=== PATIENT | female | born 1985 | race Caucasian/White ===

== ENCOUNTER 2017-01-13 11:37 | Emergency (ER) | payer OTHER ==
[~2017-01-13] VITALS: Ht 162.6 cm; Wt 62.1 kg
[2017-01-13 12:47] LABS: HEMATOCRIT 40.9 % (34.6-47.8); HEMOGLOBIN 13.8 g/dL (11.7-16.4); WHITE BLOOD COUNT 9.3 x10^3/uL (3.4-10)
[2017-01-13 12:58] LABS: ASPARTATE AMINO TRANSFERASE 19 U/L (15-37); BLOOD UREA NITROGEN 7 mg/dL (7-18)
[2017-01-13 13:03] LABS: IS PT STATUS REG ER OR PRE ER? YES
[2017-01-13 14:40] VITALS: BP 127/71
== END 2017-01-13 14:51 | disposition home or self-care (01) ==
LOC: ED 14:40
DX: O26.891 Other specified pregnancy related conditions, first trimester (principal); R00.0 Tachycardia, unspecified; R06.02 Shortness of breath; Z3A.09 9 weeks gestation of pregnancy
CPT/HCPCS: 36415; 71020; 80053; 84439; 84443; 84484; 85025; 93005; 99285

== ENCOUNTER → 2017-01-13 | Outpatient (CLI) | payer OTHER | END | disposition home or self-care (01) | LOC: CARD 15:14 | PROVIDERS: ATTEND Emergency Medicine | DX: I49.3 Ventricular premature depolarization (principal) | CPT/HCPCS: 93225; 93226 ==

== ENCOUNTER → 2017-01-13 | Outpatient (CLI) | payer OTHER | LOC: CARD 15:09 | PROVIDERS: ATTEND Emergency Medicine | DX: Z02.9 Encounter for administrative examinations, unspecified (principal) ==

== ENCOUNTER → 2017-02-12 | Outpatient (CLI) | payer OTHER | END | disposition home or self-care (01) | LOC: CFH 15:05 | PROVIDERS: ATTEND Internal Medicine Cardiovascular Disease | DX: R00.2 Palpitations (principal); R00.0 Tachycardia, unspecified | CPT/HCPCS: 93306 ==

== ENCOUNTER 2017-07-28 17:06 | Outpatient (CLI) | payer OTHER ==
[~2017-07-28] VITALS: Ht 162.6 cm; Wt 79.0 kg
[2017-07-28 17:17] VITALS: BP 122/84
== END 2017-07-28 17:50 | disposition home or self-care (01) ==
LOC: LDOP 17:06
PROVIDERS: ATTEND Obstetrics & Gynecology
DX: Z36.89 Encounter for other specified antenatal screening (principal); Z3A.36 36 weeks gestation of pregnancy
CPT/HCPCS: 59025; 99211; G0463

== ENCOUNTER 2017-08-05 10:35 | Outpatient (CLI) | payer OTHER ==
[~2017-08-05] VITALS: Ht 162.6 cm; Wt 78.1 kg
[2017-08-05 10:46] VITALS: BP 125/91
[2017-08-05 11:12] LABS: BASOPHILS # (AUTO) 0.09 x10^3/uL (0-0.1); BASOPHILS % (AUTO) 1 % (0-1); EOSINOPHILS # (AUTO) 0.06 x10^3/uL (0-0.4); EOSINOPHILS % (AUTO) 1 % (1-7); LYMPHOCYTES # (AUTO) 1.73 x10^3/uL (1-3.4); LYMPHOCYTES % (AUTO) 15 % (22-44); MD NO; MEAN CORPUSCULAR HEMOGLOBIN 31.6 pg (27.0-34.8); MEAN CORPUSCULAR HGB CONC 33.4 g/dL (32.4-35.8); MEAN CORPUSCULAR VOLUME 94.6 fL (80-100); MEAN PLATELET VOLUME 10.3 fL (7.4-10.4); MONOCYTES % (AUTO) 8 % (2-9); NEUTROPHILS # (AUTO) 9.02 x10^3/uL (1.8-6.8); NEUTROPHILS % (AUTO) 77 % (42-75); PLATELET COUNT 237 x10^3/uL (130-400); RED CELL DISTRIBUTION WIDTH 13.8 % (9.6-15.2)
[2017-08-05 11:21] LABS: ALBUMIN 2.9 g/dL (3.4-5.0); ANION GAP 6 mmol/L (5-15); CALCIUM 8.9 mg/dL (8.5-10.1); CHLORIDE 109 mmol/L (98-107)
[2017-08-05 11:26] LABS: CREATININE,URINE RANDOM 34.1 mg/dL
[2017-08-05 11:26] LABS: ALANINE AMINOTRANSFERASE 28 U/L (12-78); ALKALINE PHOSPHATASE 108 U/L (45-117); BILIRUBIN, DIRECT < 0.1 mg/dL (0.1-0.2); BILIRUBIN,TOTAL 0.5 mg/dL (0.2-1.0); CREATININE 0.61 mg/dL (0.55-1.02); TOTAL PROTEIN 6.5 g/dL (6.4-8.2)
[2017-08-05 11:27] LABS: MICROSCOPIC INDICATED
== END 2017-08-05 12:42 | disposition home or self-care (01) ==
LOC: LDOP 10:35
PROVIDERS: ATTEND Obstetrics & Gynecology
DX: O36.8130 Decreased fetal movements, third trimester, not applicable or unspecified (principal); O16.3 Unspecified maternal hypertension, third trimester; Z3A.38 38 weeks gestation of pregnancy
CPT/HCPCS: 36415; 59025; 76819; 80053; 81001; 82248; 82570; 84156; 84550; 85025; 99211; G0463

== ENCOUNTER 2017-08-18 08:04 | Inpatient (IN) | payer OTHER ==
[~2017-08-18] VITALS: Ht 162.6 cm; Wt 79.5 kg
[2017-08-18] MEDS ORDERED: MISOPROSTOL 200 MCG TABLET ONE ×2 (08:13→23:10)
[2017-08-18] MEDS ORDERED: LIDOCAINE/PF 1%, 30ML ONE (08:13)
[2017-08-18] MEDS ORDERED: NEWBORN KIT ONE (08:13)
[2017-08-18] MEDS ORDERED: OXYTOCIN 30U/ 0.9% NaCL 500ML 500 ML ONE ×2 (08:13→23:10)
[2017-08-18 08:30] VITALS: BP 134/81
[2017-08-18] MEDS ORDERED: OXYTOCIN 30U/ 0.9% NaCL 500ML 500 ML IV PRN (08:32)
[2017-08-18] MEDS ORDERED: OXYTOCIN 30U/ 0.9% NaCL 500ML 500 ML IV ONE (08:32)
[2017-08-18] MEDS: LACTATED RINGERS 1,000 ML IV SCH ×3 (08:45→23:44)
[2017-08-18] MEDS ORDERED: FENTANYL PF 100 MCG/2ML IVPush PRN (09:00)
[2017-08-18] MEDS ORDERED: PLEASE ENTER HEIGHT AND WEIGHT MC SCH (09:00)
[2017-08-18] MEDS ORDERED: METOCLOPRAMIDE 5 MG/ML, 2ML IVPush PRN (09:00)
[2017-08-18] MEDS ORDERED: CALCIUM CARBONATE 500 MG TAB.CHEW PO PRN (09:00)
[2017-08-18 09:02] LABS: BASOPHILS # (AUTO) 0.04 x10^3/uL (0-0.1); BASOPHILS % (AUTO) 0 % (0-1); EOSINOPHILS # (AUTO) 0.04 x10^3/uL (0-0.4); EOSINOPHILS % (AUTO) 0 % (1-7); LYMPHOCYTES # (AUTO) 1.86 x10^3/uL (1-3.4); LYMPHOCYTES % (AUTO) 15 % (22-44); MD NO; MEAN CORPUSCULAR HEMOGLOBIN 31.4 pg (27.0-34.8); MEAN CORPUSCULAR HGB CONC 33.1 g/dL (32.4-35.8); MEAN CORPUSCULAR VOLUME 94.8 fL (80-100); MONOCYTES # (AUTO) 0.99 x10^3/uL (0.2-0.8); MONOCYTES % (AUTO) 8 % (2-9); NEUTROPHILS # (AUTO) 9.32 x10^3/uL (1.8-6.8); NEUTROPHILS % (AUTO) 76 % (42-75); PLATELET COUNT 231 x10^3/uL (130-400); RED BLOOD COUNT 4.41 x10^6/uL (3.82-5.3); RED CELL DISTRIBUTION WIDTH 13.9 % (9.6-15.2)
[2017-08-18] MEDS ORDERED: PENICILLIN GK 5,000,000 UNITS in SODIUM CHLORIDE 0.9% 100 ML IVPB ONE (10:00)
[2017-08-18] MEDS: PENICILLIN GK 2,500,000 UNITS in DEXTROSE 5% 100 ML IVPB SCH ×3 (14:07→21:54)
[2017-08-18] MEDS ORDERED: TERBUTALINE 1 MG/ML, 1ML ONE (22:13)
[2017-08-18] MEDS ORDERED: LACTATED RINGERS 1,000 ML INTUTE PRN (22:30)
[2017-08-18] MEDS ORDERED: LACTATED RINGERS 1,000 ML INTUTE SCH (22:30)
[2017-08-18] MEDS ORDERED: KETOROLAC 30 MG/1 ML ONE (22:57)
[2017-08-18] MEDS ORDERED: OXYTOCIN 10 UNITS/ML, 1ML ONE (22:57)
[2017-08-18] MEDS ORDERED: CEFAZOLIN 1,000 MG ONE (22:57)
[2017-08-18] MEDS ORDERED: EPHEDRINE 50 MG/ML, 1ML ONE (22:57)
[2017-08-18] MEDS ORDERED: MEPERIDINE/PF 50 MG/ML ONE (23:03)
[2017-08-18] MEDS: OXYTOCIN 30U/ 0.9% NaCL 500ML 500 ML IV SCH (23:44)
[2017-08-19] VITALS (7 sets, daily range): BP systolic 115–134; BP diastolic 77–88
[2017-08-19] MEDS ORDERED: ONDANSETRON 2MG/ML, 2ML IV PRN
[2017-08-19] MEDS ORDERED: HYDROcodone/APAP 5/325 TABLET PO PRN
[2017-08-19] MEDS ORDERED: METHYLERGONOVINE 0.2 MG/ML IM PRN
[2017-08-19] MEDS ORDERED: MISOPROSTOL 200 MCG TABLET PR PRN
[2017-08-19] MEDS ORDERED: METOCLOPRAMIDE 5 MG/ML, 2ML IV PRN
[2017-08-19] MEDS ORDERED: TRANEXAMIC ACID 100 MG/ML, 10ML IV ONE
[2017-08-19] MEDS ORDERED: TRANEXAMIC ACID 100 MG/ML, 10ML ONE (00:06)
[2017-08-19] MEDS: LACTATED RINGERS 1,000 ML IV SCH ×6 (00:19→22:58)
[2017-08-19] MEDS ORDERED: HYDROcodone/APAP 7.5-325MG/15ML UDC ONE (00:45)
[2017-08-19] MEDS ORDERED: HYDROcodone/APAP 7.5-325MG/15ML UDC PO PRN (01:00)
[2017-08-19] MEDS ORDERED: MEPERIDINE/PF 50 MG/ML ONE ×2 (03:24→15:45)
[2017-08-19] MEDS ORDERED: MEPERIDINE/PF 100 MG/ML ONE (03:28)
[2017-08-19] MEDS: MEPERIDINE/PF 25MG/0.5ML IM PRN ×2 (03:39→15:48)
[2017-08-19] MEDS: IBUPROFEN 600 MG TABLET PO PRN ×4 (05:45→23:05)
[2017-08-19 08:11] LABS: BASOPHILS # (AUTO) 0.03 x10^3/uL (0-0.1); BASOPHILS % (AUTO) 0 % (0-1); EOSINOPHILS # (AUTO) 0.03 x10^3/uL (0-0.4); EOSINOPHILS % (AUTO) 0 % (1-7); LYMPHOCYTES # (AUTO) 1.75 x10^3/uL (1-3.4); LYMPHOCYTES % (AUTO) 14 % (22-44); MD NO; MEAN CORPUSCULAR HEMOGLOBIN 31.9 pg (27.0-34.8); MEAN CORPUSCULAR HGB CONC 33.5 g/dL (32.4-35.8); MEAN CORPUSCULAR VOLUME 95.1 fL (80-100); MEAN PLATELET VOLUME 10.2 fL (7.4-10.4); MONOCYTES # (AUTO) 0.97 x10^3/uL (0.2-0.8); MONOCYTES % (AUTO) 8 % (2-9); NEUTROPHILS # (AUTO) 9.64 x10^3/uL (1.8-6.8); NEUTROPHILS % (AUTO) 78 % (42-75); PLATELET COUNT 187 x10^3/uL (130-400); RED BLOOD COUNT 3.29 x10^6/uL (3.82-5.3); RED CELL DISTRIBUTION WIDTH 14.3 % (9.6-15.2)
[2017-08-19] MEDS: DOCUSATE 100 MG CAPSULE PO PRN ×2 (08:47→20:58)
[2017-08-19] MEDS ORDERED: LACTATED RINGERS 500 ML IVBOLUS ONE (09:00)
[2017-08-19] MEDS: PRENATAL VIT/IRON/FA 1 EACH TABLET PO SCH (09:00)
[2017-08-19] MEDS: OXYTOCIN 30U/ 0.9% NaCL 500ML 500 ML IV SCH ×2 (09:44→19:44)
[2017-08-19] MEDS: HYDROcodone/APAP 5/325 TABLET PO PRN (12:54)
[2017-08-19] MEDS ORDERED: MEPERIDINE 50 MG TABLET PO PRN (20:30)
[2017-08-19] MEDS: SIMETHICONE 80 MG CHEW TAB PO PRN (20:58)
[2017-08-19] MEDS: ACETAMINOPHEN 325 MG TABLET PO PRN (23:05)
[2017-08-20] MEDS ORDERED: MEPERIDINE/PF 50 MG/ML ONE (02:18)
[2017-08-20] MEDS: MEPERIDINE/PF 25MG/0.5ML IM PRN (03:54)
[2017-08-20] MEDS: LACTATED RINGERS 1,000 ML IV SCH ×2 (05:12)
[2017-08-20] MEDS: OXYTOCIN 30U/ 0.9% NaCL 500ML 500 ML IV SCH (05:12)
[2017-08-20] MEDS: SIMETHICONE 80 MG CHEW TAB PO PRN (05:28)
[2017-08-20] MEDS: IBUPROFEN 600 MG TABLET PO PRN ×2 (05:28→11:19)
[2017-08-20] MEDS: ACETAMINOPHEN 325 MG TABLET PO PRN (05:28)
[2017-08-20 08:05] VITALS: BP 127/84
[2017-08-20] MEDS: DOCUSATE 100 MG CAPSULE PO PRN (08:13)
[2017-08-20] MEDS: PRENATAL VIT/IRON/FA 1 EACH TABLET PO SCH (08:13)
[2017-08-20] MEDS: HYDROcodone/APAP 5/325 TABLET PO PRN ×2 (08:36→12:20)
[2017-08-20] MEDS ORDERED: IBUP-1222 PO (11:45)
[2017-08-20] MEDS ORDERED: HYDR-3240 PO (11:46)
[2017-08-20] MEDS ORDERED: DOCU-131 PO (11:46)
== END 2017-08-20 15:03 | disposition home or self-care (01) | DRG 765 ==
LOC: LDIP 08:04 → 2NW 08-19 01:12
PROVIDERS: ADMIT Obstetrics & Gynecology; ATTEND Obstetrics & Gynecology
PROC: 10D00Z1 Extraction of Products of Conception, Low, Open Approach (ICD-10-PCS; principal; 2017-08-18)
DX: O76 Abnormality in fetal heart rate and rhythm complicating labor and delivery (principal); O99.354 Diseases of the nervous system complicating childbirth; O99.824 Streptococcus B carrier state complicating childbirth; O99.52 Diseases of the respiratory system complicating childbirth; J45.909 Unspecified asthma, uncomplicated; O69.1XX0 Labor and delivery complicated by cord around neck, with compression, not applicable or unspecified; Z3A.39 39 weeks gestation of pregnancy; Z37.0 Single live birth; G43.909 Migraine, unspecified, not intractable, without status migrainosus; Z88.6 Allergy status to analgesic agent
CPT/HCPCS: 36415; 82803; 85025; 86850; 86900; J0690; J1885; J2175; J2540; J7120; J2590